=== PATIENT | male | born 1990 | race Caucasian/White ===

== ENCOUNTER 2023-11-21 08:04 | Outpatient (CLI) | payer BC, SELFPAY | END 2023-11-21 08:05 | disposition home or self-care (01) | LOC: NFLDREF 11-23 08:36 | PROVIDERS: PCP Family Medicine; Referring Provider Family Medicine; Visit Provider Family Medicine | DX: E78.5 Hyperlipidemia, unspecified (principal) | CPT/HCPCS: 80053; 80061 ==

== ENCOUNTER 2025-01-16 08:34 | Outpatient (CLI) | payer BC, SELFPAY | END 2025-01-16 08:35 | disposition home or self-care (01) | LOC: NFLDREF 01-20 18:51 | PROVIDERS: PCP Family Medicine; Referring Provider Family Medicine; Visit Provider Family Medicine | DX: E78.1 Pure hyperglyceridemia (principal); E78.5 Hyperlipidemia, unspecified | CPT/HCPCS: 80053; 80061 ==